=== PATIENT | female | born 1985 | race Caucasian/White ===

== ENCOUNTER 2016-06-26 13:48 | Emergency (ER) ==
[2016-06-26 13:58] VITALS: BP 123/78; TEMP 98.9; BMI 27.6
[2016-06-26 14:26] LABS: BASOPHILS % (AUTO) 0.5 % (0.0-3.0); EOSINOPHILS # (AUTO) 0.1 K/ul (0.0-0.7); EOSINOPHILS % (AUTO) 1.7 % (0.0-7.0); HEMATOCRIT 34.5 % (37.0-47.0); HEMOGLOBIN 11.7 g/dl (12.0-16.0); IMMATURE GRANULOCYTE % (AUTO) 0.4 % (0.0-5.0); LYMPHOCYTES # (AUTO) 2.3 K/uL (0.60-3.4); LYMPHOCYTES % (AUTO) 28.6 (10.0-50.0); MEAN CORPUSCULAR HEMOGLOBIN 28.5 pg (27.0-31.0); MEAN CORPUSCULAR HGB CONC 33.9 (31.8-35.4); MEAN CORPUSCULAR VOLUME 83.9 fl (81.0-99.0); MONOCYTES # (AUTO) 0.7 K/uL (0.4-2.0); MONOCYTES % (AUTO) 8.9 (0-10); NEUTROPHILS # (AUTO) 4.8 K/ul (2.0-6.9); NEUTROPHILS % (AUTO) 59.9; PLATELET COUNT 420 10^3/uL (140-440); RED BLOOD COUNT 4.11 10^6/ul (4.20-5.40); WHITE BLOOD COUNT 8.07 K/ul (4.6-10.2)
[2016-06-26 14:45] LABS: ALBUMIN/GLOBULIN RATIO 1.11; ANION GAP 18.5; BILIRUBIN,TOTAL 0.67 mg/dL (0.00-1.20); BUN/CREATININE RATIO 7.81; CALCIUM 9.2 mg/dL (8.2-10.2); CREATININE 0.64 mg/dL (0.60-1.30); TOTAL PROTEIN 7.6 g/dL (6.4-8.2)
[2016-06-26 14:47] LABS: POTASSIUM 2.5 mmol/L (3.5-5.10)
[2016-06-26] MEDS ORDERED: POTASSIUM CHLORIDE PREMIX RUN 10 MEQ in PREMIX 100 ML WATER 1 BAG IV STA (15:07)
[2016-06-26] MEDS ORDERED: POTASSIUM CHLORIDE PREMIX RUN 100 ML IV ONE (15:41)
--- NOTE | 2016-06-26 16:43 | ED.PDOC ---
General ED Provider: Dr. WINSTON SANCHEZ Chief Complaint: Non-specific Complaint Stated Complaint: HAND CRAMPING Time Seen by Physician: 13:50 (BOTH HANDS CRAMP PT STATED HER POTASSIUM LEVE CHRONICLY RUNS IN 2.5 RANGE) Mode of Arrival: Walk-In Information Source: Patient Exam Limitations: No limitations Primary Care Provider: LISSY WALDROP Nursing and Triage Documentation Reviewed and Agree: Yes (NO INJURY SEEN WITH CAKE WRAPPER AT ALL TIMES ) Miscellaneous Complaint Exam - Complex/Multi-System Complaint/Exam Onset/Duration: 1 DAY Symptoms Are: Still present Episodes Lasting: Hours Initial Severity: Mild Current Severity: Mild Location of Pain: HANDS Pain Radiates to: NO Character: CRAMP Aggravating: HYPOKALEMIA Associated Signs and Symptoms: Denies: Decreased responsiveness, Confusion, Agitation, Dizziness, Weakness, Syncope, Headache, Short of air, Cough, Wheezing , Hemoptysis, Chest pain, Palpitations, Edema, Nausea, Vomiting, Diarrhea, Abdominal pain, Back pain, Dysuria, Hematemesis, Melena, Decreased oral intake, Fever, Diaphoresis, Immunocompromised, Anticoagulation Therapy, Recent medication changes, Indwelling medical anthropologist, Prior MRSA, Prior VRE, Recent trauma, Remote trauma Recent Echo/LV Function: No Respiratory Distress: None JVD Present: No Tachypnea Present: No Stridor Present: No Glascow Coma Scale (see protocol): 15 Meningeal Signs Positive: Yes Focal Weakness: Present: None Focal Sensory Loss: Present: None Gait: Normal Gag Reflex Present: Yes Review of Systems - Review Of Systems Constitutional: Reports: No symptoms Eyes: Reports: No symptoms Ears, Nose, Mouth, Throat: Reports: No symptoms Respiratory: Reports: No symptoms Cardiac: Reports: No symptoms GI: Reports: No symptoms : Reports: No symptoms Musculoskeletal: Reports: Other (HAND PAIN) Skin: Reports: No symptoms Neurological: Reports: No symptoms Endocrine: Reports: No symptoms Hematologic/Lymphatic: Reports: No symptoms All Other Systems: Reviewed and Negative Past Medical History - Past Medical History Endocrine: Reports: None Cardiovascular: Reports: None Respiratory: Reports: None Hematological: Reports: None Gastrointestinal: Reports: None Genitourinary: Reports: None Neuro/Psych: Reports: None Musculoskeletal: Reports: None Cancer: Reports: None Last Menstrual Period: apr 2016 Other Pertinent Past Medical History: GITLEMANS - Surgical History General Surgical History: Reports: Appendectomy, Cholecystectomy, Other (GALL BLADDER,APPENDIX, X 1) - Family History Family History: Reports: None - Social History Smoking Status: Never smoker Hx Substance Use: No Alcohol Screening: None Physical Exam - Physical Exam Appearance: Well-appearing, No pain distress, Well-nourished Eyes: DIONNE, EOMI, Conjunctiva clear ENT: Ears normal, Nose normal, Oropharynx normal Respiratory: Airway patent, Breath sounds clear, Breath sounds equal, Respirations nonlabored Cardiovascular: RRR, Pulses normal, No rub, No murmur GI/: Soft, Nontender, No masses, Bowel sounds normal, No Organomegaly Musculoskeletal: Normal strength, ROM intact, No edema, No calf tenderness Skin: Warm, Dry, Normal color Neurological: Sensation intact, Motor intact, Reflexes intact, Cranial nerves intact, Alert, Oriented Psychiatric: Affect appropriate, Mood appropriate Critical Care Note - Critical Care Note Total Time (mins): 0 Course - Course Hematology/Chemistry: 06/26/16 14:20 06/26/16 14:20 Orders, Labs, Meds: Lab Review 06/26/16 06/26/16 14:14 14:20 WBC 8.07 RBC 4.11 L Hgb 11.7 L Hct 34.5 L MCV 83.9 MCH 28.5 MCHC 33.9 RDW Coeff of Marcos 13.8 Plt Count 420 Immature Gran % (Auto) 0.4 Neut % (Auto) 59.9 Lymph % (Auto) 28.6 [place] % (Auto) 8.9 Eos % (Auto) 1.7 Baso % (Auto) 0.5 Immature Gran # (Auto) 0.0 Neut # 4.8 Lymph # 2.3 [place] # 0.7 Eos # 0.1 Baso # 0.0 Sodium 140 Potassium 2.5 L* Chloride 96 L Carbon Dioxide 28 Anion Gap 18.5 BUN 5 L Creatinine 0.64 Estimated GFR (MDRD) 110.00 BUN/Creatinine Ratio 7.81 Glucose 89 Calcium 9.2 Magnesium 1.6 L Total Bilirubin 0.67 AST 39 H ALT 41 Alkaline Phosphatase 52 Total Protein 7.6 Albumin 4.0 Globulin 3.6 Albumin/Globulin Ratio 1.11 Orders Category Date Time Status EKG-(ED ONLY) Stat CARDIO 06/26/16 15:05 Completed ED IV/MEDIPORT/POWERPORT .ONCE EMERGENCY 06/26/16 15:10 Active CBC W/ AUTO DIFF Stat LAB 06/26/16 14:20 Completed COMPREHENSIVE METABOLIC PANEL Stat LAB 06/26/16 14:20 Completed MAGNESIUM Stat LAB 06/26/16 14:14 Completed 0.9 % Sodium Chloride [Saline Flush] MEDS 06/26/16 15:10 Ordered 1 syr IVF PRN PRN Potassium Chloride [Potassium Chloride Premix Run] 10 MEDS 06/26/16 15:07 Discontinued meq Premix 100 ml Water 1 bag IV ONCE Potassium Chloride [Potassium Chloride Premix Run] 100 MEDS 06/26/16 15:41 Discontinued ml IV .STK-MED Medications Generic Name Dose Route Start Last Admin Trade Name Freq PRN Reason Stop Dose Admin Sodium Chloride 1 syr 06/26/16 15:10 06/26/16 16:10 Saline Flush IVF 1 syr PRN PRN Administration To flush IV Discontinued Medications Generic Name Dose Route Start Last Admin Trade Name Freq PRN Reason Stop Dose Admin Potassium Chloride 10 meq/ 100 mls @ 100 mls/hr 06/26/16 15:07 06/26/16 16:09 Sterile Water IV 06/26/16 16:06 100 mls/hr ONCE STA Administration Vital Signs: Temp Pulse Resp BP Pulse Ox 06/26/16 13:49 98.9 F 104 H 20 123/78 98 Departure - Departure Time of Disposition: 16:43 Disposition: HOME SELF-CARE Discharge Problem: Hypokalemia Instructions: Hypokalemia (ED) Condition: Good Pt referred to PMD for follow-up: No Additional Instructions: Please call your Family Physician as soon as possible to schedule a follow-up appointment. Allergies/Adverse Reactions: Allergies No Known Allergies Allergy (Verified 06/26/16 13:57) Home Medications: Ambulatory Orders 1 [No Reported Medications] 06/26/16 Disposition Discussed With: Patient, Family
== END 2016-06-26 17:37 | disposition home or self-care (01) ==
LOC: ED 13:48
DX: E87.6 Hypokalemia (principal); E26.81 Bartter's syndrome
CPT/HCPCS: 36415; 80053; 83735; 85025; 93005; 93010; 96365; 96366; 99283

== ENCOUNTER 2016-07-16 18:13 | Emergency (ER) ==
[2016-07-16 18:23] VITALS: BP 138/88; TEMP 97.6; BMI 27.4
[2016-07-16] MEDS ORDERED: SODIUM CHLORIDE 1,000 ML IV STA (18:39)
[2016-07-16 18:50] LABS: BASOPHILS # (AUTO) 0.1 K/uL (0-0.2); BASOPHILS % (AUTO) 0.4 % (0.0-3.0); EOSINOPHILS # (AUTO) 0.1 K/ul (0.0-0.7); EOSINOPHILS % (AUTO) 0.7 % (0.0-7.0); HEMATOCRIT 35.2 % (37.0-47.0); HEMOGLOBIN 11.9 g/dl (12.0-16.0); IMMATURE GRANULOCYTE % (AUTO) 0.6 % (0.0-5.0); LYMPHOCYTES # (AUTO) 1.3 K/uL (0.60-3.4); LYMPHOCYTES % (AUTO) 10.3 (10.0-50.0); MEAN CORPUSCULAR HEMOGLOBIN 27.5 pg (27.0-31.0); MEAN CORPUSCULAR HGB CONC 33.8 (31.8-35.4); MEAN CORPUSCULAR VOLUME 81.5 fl (81.0-99.0); MONOCYTES # (AUTO) 0.8 K/uL (0.4-2.0); MONOCYTES % (AUTO) 6.2 (0-10); NEUTROPHILS % (AUTO) 81.8; PLATELET COUNT 387 10^3/uL (140-440); RED BLOOD COUNT 4.32 10^6/ul (4.20-5.40); WHITE BLOOD COUNT 12.15 K/ul (4.6-10.2)
[2016-07-16 18:59] LABS: BILIRUBIN,URINE Negative (NEGATIVE); KETONES,URINE 3+ (NEGATIVE); LEUKOCYTE ESTERASE ,URINE Trace (NEGATIVE); NITRITE,URINE Negative (NEGATIVE); PROTEIN,URINE 2+ (NEGATIVE); URINE, BLOOD Trace-lysed (NEGATIVE)
[2016-07-16 19:01] LABS: ADD URINE MICROSCOPIC YES
[2016-07-16 19:03] LABS: BACTERIA,URINE 1+ (NOT PRESENT)
[2016-07-16 19:09] LABS: SERUM PREGNANCY INTERNAL QC INTERNAL QC VALID
[2016-07-16 19:49] LABS: ALBUMIN 4.1 g/dL (3.4-5.0); ALBUMIN/GLOBULIN RATIO 0.98; ANION GAP 21.2; BILIRUBIN,TOTAL 0.37 mg/dL (0.00-1.20); BUN/CREATININE RATIO 6.75; CALCIUM 10.1 mg/dL (8.2-10.2); CREATININE 0.74 mg/dL (0.60-1.30); TOTAL PROTEIN 8.3 g/dL (6.4-8.2)
[2016-07-16 19:50] LABS: POTASSIUM 2.2 mmol/L (3.5-5.10)
[2016-07-16] MEDS ORDERED: POTASSIUM CHLORIDE PREMIX RUN 40 MEQ in PREMIX 100 ML WATER 2 BAG IV STA (19:53)
--- NOTE | 2016-07-16 19:57 | ED.PDOC ---
General ED Provider: Dr. LISSY WALDROP-ER Chief Complaint: Stated Complaint: im hurting and throwing up--im constipated Time Seen by Physician: 19:56 Mode of Arrival: Walk-In Information Source: Patient Exam Limitations: No limitations Primary Care Provider: LISSY WALDROP Nursing and Triage Documentation Reviewed and Agree: Yes GI Complaint Exam - Vomiting/Diarrhea Complaint/Exam Onset/Duration: a few hours Symptoms Are: Still present Episodes of Vomiting over last 24 Hours: 5 Initial Severity: Mild Current Severity: Mild Character of Vomiting: Reports: Non-bilious Aggravating: Reports: None Alleviating: Reports: None Associated Signs and Symptoms: Reports: Abdominal pain, Cramping Recent Positive Test: Yes Use of Oral Contraceptives: No Use of Depoprovera: No Compliant With Contraceptive Use: No Non-GI Risk Factors: Reports: None Surgical Obstruction Risk Factors: Reports: None Related Surgical History: Reports: None Abdominal Findings: Present: None Kussmaul Respirations Present: No Review of Systems - Review Of Systems Constitutional: Reports: No symptoms Eyes: Reports: No symptoms Ears, Nose, Mouth, Throat: Reports: No symptoms Respiratory: Reports: No symptoms Cardiac: Reports: No symptoms GI: Reports: Abdominal pain, Constipated, Nausea, Vomiting : Reports: No symptoms Musculoskeletal: Reports: No symptoms Skin: Reports: No symptoms Neurological: Reports: No symptoms Endocrine: Reports: No symptoms Hematologic/Lymphatic: Reports: No symptoms All Other Systems: Reviewed and Negative Past Medical History - Past Medical History Endocrine: Reports: None Cardiovascular: Reports: None Respiratory: Reports: None Hematological: Reports: None Gastrointestinal: Reports: None Genitourinary: Reports: None Neuro/Psych: Reports: None Musculoskeletal: Reports: None Cancer: Reports: None Last Menstrual Period: May 11, 2016 Other Pertinent Past Medical History: GITLEMANS - Surgical History General Surgical History: Reports: Appendectomy, Cholecystectomy, Other (GALL BLADDER,APPENDIX, X 1) - Family History Family History: Reports: None - Social History Smoking Status: Never smoker Hx Substance Use: No Alcohol Screening: None Lives: With family - Immunizations Tetanus Shot up to Date: Yes Physical Exam - Physical Exam Appearance: Ill-appearing Eyes: DIONNE, EOMI, Conjunctiva clear ENT: Ears normal, Nose normal, Oropharynx normal Neck: Supple Respiratory: Airway patent, Breath sounds clear, Breath sounds equal, Respirations nonlabored Cardiovascular: RRR, Pulses normal, No rub, No murmur GI/: Soft, Nontender, No masses, Bowel sounds normal, No Organomegaly Musculoskeletal: Normal strength, ROM intact, No edema, No calf tenderness Skin: Warm, Dry, Normal color Neurological: Sensation intact, Motor intact, Reflexes intact, Cranial nerves intact, Alert, Oriented Psychiatric: Affect appropriate Re-Evaluation - Re-Evaluation Time of Re-Evaluation: 21:01 Status: Improved (had bm--no further pain) Vital Signs Stable: Yes Pain Level: 0 Appearance: NAD Lungs: Clear Skin: Warm and Dry Neuro: Alert and Oriented X3 CV: RRR Critical Care Note - Critical Care Note Total Time (mins): 0 Course - Course Hematology/Chemistry: 07/16/16 18:45 07/16/16 18:45 Orders, Labs, Meds: Lab Review 07/16/16 07/16/16 07/16/16 18:10 18:45 19:00 WBC 12.15 H RBC 4.32 Hgb 11.9 L Hct 35.2 L MCV 81.5 MCH 27.5 MCHC 33.8 RDW Coeff of Marcos 13.3 Plt Count 387 Immature Gran % (Auto) 0.6 Neut % (Auto) 81.8 Lymph % (Auto) 10.3 [place] % (Auto) 6.2 Eos % (Auto) 0.7 Baso % (Auto) 0.4 Immature Gran # (Auto) 0.1 Neut # 10.0 H Lymph # 1.3 [place] # 0.8 Eos # 0.1 Baso # 0.1 Sodium 136 Potassium 2.2 L* Chloride 94 L Carbon Dioxide 23 Anion Gap 21.2 BUN 5 L Creatinine 0.74 Estimated GFR (MDRD) 92.00 BUN/Creatinine Ratio 6.75 Glucose 111 H Calcium 10.1 Magnesium 1.8 Total Bilirubin 0.37 AST 32 ALT 23 Alkaline Phosphatase 62 Total Protein 8.3 H Albumin 4.1 Globulin 4.2 Albumin/Globulin Ratio 0.98 Amylase 63 Lipase 21 HCG, Quant 613227.79 Serum , Qual Positive Urine Color Yellow Urine Clarity Slightly Urine pH 6.0 Ur Specific [place] 1.025 Urine Protein 2+ Urine Glucose (UA) Negative Urine Ketones 3+ Urine Blood Trace-lysed Urine Nitrite Negative Urine Bilirubin Negative Urine Urobilinogen 0.2 Ur Leukocyte Esterase Trace Urine Microscopic RBC 5-10 Urine Microscopic WBC 2-5 Ur Squamous Epith Cells 10-20 Amorphous Sediment 1+ Urine Bacteria 1+ Orders Category Date Time Status IV [ED IV/MEDIPORT/POWERPORT] .ONCE EMERGENCY 07/16/16 18:39 Active AMYLASE Stat LAB 07/16/16 18:45 Completed CBC W/ AUTO DIFF Stat LAB 07/16/16 18:45 Completed COMPREHENSIVE METABOLIC PANEL Stat LAB 07/16/16 18:45 Completed HCG,QUANTITATIVE Stat LAB 07/16/16 18:45 Completed LIPASE Stat LAB 07/16/16 18:45 Completed MAGNESIUM Stat LAB 07/16/16 19:00 Completed SERUM Stat LAB 07/16/16 18:45 Completed URINALYSIS C & S IF INDICATED Stat LAB 07/16/16 18:10 Completed URINE CULTURE Stat LAB 07/16/16 19:02 Received 0.9 % Sodium Chloride [Saline Flush] MEDS 07/16/16 18:39 Ordered 1 syr IVF PRN PRN Potassium Chloride [Potassium Chloride Premix Run] 200 MEDS 07/16/16 19:57 Discontinued ml IV .STK-MED Potassium Chloride [Potassium Chloride Premix Run] 40 MEDS 07/16/16 19:53 Active meq Premix 100 ml Water 2 bag IV ONCE Sodium Chloride 0.9% [Sodium Chloride] 1,000 ml MEDS 07/16/16 18:39 Discontinued IV BOLUS Medications Generic Name Dose Route Start Last Admin Trade Name Freq PRN Reason Stop Dose Admin Potassium Chloride 40 meq/ 200 mls @ 50 mls/hr 07/16/16 19:53 07/16/16 20:14 Sterile Water IV 07/16/16 23:52 Not Given ONCE STA Sodium Chloride 1 syr 07/16/16 18:39 Saline Flush IVF PRN PRN To flush IV Discontinued Medications Generic Name Dose Route Start Last Admin Trade Name Freq PRN Reason Stop Dose Admin Sodium Chloride 1,000 mls @ 1,000 mls/hr 07/16/16 18:39 07/16/16 19:00 Sodium Chloride IV 07/16/16 19:38 1,000 mls/hr BOLUS STA Administration after she had bm--she denies any further abdominal pain--no pelvic pain or bleeding) Vital Signs: Temp Pulse Resp BP Pulse Ox 07/16/16 18:15 97.6 F 85 18 138/88 98 Departure - Departure Time of Disposition: 21:55 Disposition: HOME SELF-CARE Discharge Problem: Hypokalemia Constipation Qualifiers: Constipation type: unspecified constipation type Qualifier Code: (K59.00) Constipation, unspecified Instructions: High Fiber Diet (ED) Condition: Good Pt referred to PMD for follow-up: Yes Additional Instructions: keep appt with ob this week--be sure and get lytes checked this week Allergies/Adverse Reactions: Allergies No Known Allergies Allergy (Verified 06/26/16 13:57) Home Medications: Ambulatory Orders Escitalopram Oxalate [Lexapro] 10 mg PO DAILY 07/16/16 Pnv95/Ferrous Fumarate/FA [ Tablet] 1 each PO DAILY 07/16/16 Disposition Discussed With: Patient, Family
[2016-07-16] MEDS: POTASSIUM CHLORIDE PREMIX RUN 200 ML IV ONE ×2 (20:14→21:42)
== END 2016-07-16 23:57 | disposition home or self-care (01) ==
LOC: ED 18:13
DX: E87.6 Hypokalemia (principal); K59.00 Constipation, unspecified; E26.81 Bartter's syndrome; Z33.1 Pregnant state, incidental; R11.2 Nausea with vomiting, unspecified; R10.9 Unspecified abdominal pain
CPT/HCPCS: 36415; 80053; 81001; 82150; 83690; 83735; 84702; 84703; 85025; 87086; 96361; 96365; 96366; 99284

== ENCOUNTER 2018-09-29 14:18 | Observation (INO) ==
[2018-09-29] MEDS ORDERED: TYLENOL PO STA (15:23)
[2018-09-29] MEDS ORDERED: ZOFRAN 4 MG/2 ML IVP STA (15:30)
[2018-09-29] MEDS ORDERED: K-DUR PO STA (16:02)
[2018-09-29] MEDS ORDERED: POTASSIUM CHLORIDE PREMIX RUN 10 MEQ in PREMIX 100 ML WATER 1 BAG IV STA ×9 (16:03→18:56)
[2018-09-29] MEDS ORDERED: ZOSYN 3.375 GM 3.375 GM in SODIUM CHLORIDE 50 ML IV STA (16:03)
[2018-09-29] MEDS ORDERED: POTASSIUM CHLORIDE PREMIX RUN 100 ML IV ONE ×4 (16:06→23:51)
--- NOTE | 2018-09-29 16:08 | ED.PDOC ---
General ED Provider: Dr. WINSTON SANCHEZ Chief Complaint: Non-specific Complaint Stated Complaint: Leg cramps . pt reports that she was due to get K /Mag as out pt out pt but, she had skipped the out pt mag/k replacement 1 day ago.now has cramos which she notes when her. Time Seen by Physician: 14:20 Mode of Arrival: Walk-In Information Source: Patient Exam Limitations: No limitations Primary Care Provider: LISSY WALDROP Nursing and Triage Documentation Reviewed and Agree: Yes Does patient meet sepsis criteria?: No System Inflammatory Response Syndrome: Not Applicable Sepsis Protocol: For patient's 13 years and over: Temp is 96.8 and below OR 101 and greater Pulse >90 BPM Resp >20/minute Acutely Altered Mental Status Are patient's symptoms suggestive of a new infection, such as: -Pneumonia -Skin, Soft Tissue -Endocarditis -UTI -Bone, Joint Infection -Implantable Device -Acute Abdominal Infection -Wound Infection -Meningitis -Blood Stream Catheter Infection -Unknown Miscellaneous Complaint Exam - Complex/Multi-System Complaint/Exam Symptoms Are: Still present Initial Severity: Mild Current Severity: Mild Location of Pain: upper/lower leg Associated Signs and Symptoms: Denies: Decreased responsiveness, Confusion, Agitation, Dizziness, Weakness, Syncope, Headache, Short of air, Cough, Wheezing , Hemoptysis, Chest pain, Palpitations, Edema, Nausea, Vomiting, Diarrhea, Abdominal pain, Back pain, Dysuria, Hematemesis, Melena, Decreased oral intake, Fever, Diaphoresis, Immunocompromised, Anticoagulation Therapy, Recent medication changes, Indwelling medical billing coordinator, Prior MRSA, Prior VRE, Recent trauma, Remote trauma Recent Echo/LV Function: No Respiratory Distress: None JVD Present: No Tachypnea Present: No Stridor Present: No Abdominal Findings: Present: Normal findings Glascow Coma Scale (see protocol): 15 Meningeal Signs Positive: No Focal Weakness: Present: None Focal Sensory Loss: Present: None Gait: Unable Gag Reflex Present: Yes Babinski Sign: Negative Right, Negative Left Skin Findings: Present: Normal findings Joint Swelling Present: No Differential Diagnosis: Metabolic Abnormality, Sepsis Quality Indicators for Cardiac Chest Pain: EKG in 10min. Quality Indicator For Non-Traumatic Chest Pain/Syncope: EKG Performed Review of Systems - Review Of Systems Constitutional: Reports: No symptoms Eyes: Reports: No symptoms Ears, Nose, Mouth, Throat: Reports: No symptoms Respiratory: Reports: No symptoms Cardiac: Reports: No symptoms GI: Reports: No symptoms : Reports: No symptoms Musculoskeletal: Reports: Other (leg pain) Skin: Reports: No symptoms Neurological: Reports: No symptoms Endocrine: Reports: No symptoms Hematologic/Lymphatic: Reports: No symptoms All Other Systems: Reviewed and Negative Past Medical History - Past Medical History Previously Healthy: No Endocrine: Reports: None Cardiovascular: Reports: None Respiratory: Reports: None Hematological: Reports: None Gastrointestinal: Reports: None Genitourinary: Reports: None Neuro/Psych: Reports: None Musculoskeletal: Reports: None Cancer: Reports: None Last Menstrual Period: 3 WEEKS AGO Other Pertinent Past Medical History: GITLEMANS - Surgical History General Surgical History: Reports: Appendectomy, Cholecystectomy, Other (GALL BLADDER,APPENDIX, X 1) - Family History Family History: Reports: None - Social History Smoking Status: Never smoker Hx Substance Use: No Alcohol Screening: None - Immunizations Tetanus Shot up to Date: No Physical Exam - Physical Exam Appearance: Well-appearing, No pain distress, Well-nourished Eyes: DIONNE, EOMI, Conjunctiva clear ENT: Ears normal, Nose normal, Oropharynx normal Respiratory: Airway patent, Breath sounds clear, Breath sounds equal, Respirations nonlabored Cardiovascular: RRR, Pulses normal, No rub, No murmur GI/: Soft, Nontender, No masses, Bowel sounds normal, No Organomegaly Musculoskeletal: Normal strength, ROM intact, No edema, No calf tenderness Skin: Warm, Dry, Normal color Neurological: Sensation intact, Motor intact, Reflexes intact, Cranial nerves intact, Alert, Oriented Psychiatric: Affect appropriate, Mood appropriate Re-Evaluation - Re-Evaluation Time of Re-Evaluation: 15:30 Status: Unchanged, Improved Vital Signs Stable: Yes Pain Level: 2/10 Appearance: NAD Lungs: Clear Skin: Warm and Dry Neuro: Alert and Oriented X3 CV: RRR - Re-Evaluation Time of Re-Evaluation: 16:55 Status: Unchanged Vital Signs Stable: Yes Pain Level: 0 Appearance: NAD Skin: Warm and Dry Neuro: Alert and Oriented X3 CV: RRR (serum mag 1.16 . PMD PAGED) Additional Comments: pmd gave orders to the nurse these orders are out pt orders. Physician Notification - Case Discussed Physician Notified: danni Time of Notification: 16:13 (stated once mag level is known to be called he will issue further orders ) Physician Notified: pmd Time of Notification: 17:03 (mag levels reported . pmd stated he would give order to jude dean for out pt order.) Critical Care Note - Critical Care Note Total Time (mins): 0 Course - Course Hematology/Chemistry: 09/29/18 15:05 09/29/18 15:05 Orders, Labs, Meds: Lab Review 09/29/18 09/29/18 09/29/18 14:45 14:45 15:05 WBC 15.72 H RBC 4.29 Hgb 11.8 L Hct 35.2 L MCV 82.1 MCH 27.5 MCHC 33.5 RDW Coeff of Marcos 13.8 Plt Count 332 Immature Gran % (Auto) 0.5 Neut % (Auto) 85.1 Lymph % (Auto) 5.9 L [place] % (Auto) 8.1 Eos % (Auto) 0.1 Baso % (Auto) 0.3 Immature Gran # (Auto) 0.1 Neut # (Auto) 13.4 H Lymph # (Auto) 0.9 [place] # (Auto) 1.3 Eos # (Auto) 0.0 Baso # (Auto) 0.0 PT INR APTT Sodium Potassium Chloride Carbon Dioxide Anion Gap BUN Creatinine Estimated GFR (MDRD) BUN/Creatinine Ratio Glucose Lactic Acid Calcium Magnesium Total Bilirubin AST ALT Alkaline Phosphatase Total Protein Albumin Globulin Albumin/Globulin Ratio Procalcitonin TSH Free T4 Urine Color Yellow Urine Clarity Slightly Urine pH 7.0 Ur Specific [place] 1.015 Urine Protein 1+ Urine Glucose (UA) Negative Urine Ketones Negative Urine Blood Trace-intact Urine Nitrite Negative Urine Bilirubin Negative Urine Urobilinogen 0.2 Ur Leukocyte Esterase 1+ Urine Microscopic RBC 2-5 Urine Microscopic WBC 5-10 Ur Squamous Epith Cells 5-10 Urine Bacteria 2+ Influ A Molecular Assay Negative by naat Influ B Molecular Assay Negative by naat 09/29/18 09/29/18 09/29/18 15:05 15:05 15:05 WBC RBC Hgb Hct MCV MCH MCHC RDW Coeff of Marcos Plt Count Immature Gran % (Auto) Neut % (Auto) Lymph % (Auto) [place] % (Auto) Eos % (Auto) Baso % (Auto) Immature Gran # (Auto) Neut # (Auto) Lymph # (Auto) [place] # (Auto) Eos # (Auto) Baso # (Auto) PT INR APTT Sodium 134.8 Potassium 1.86 L* Chloride 88.9 L Carbon Dioxide 31.6 H Anion Gap 16.16 BUN 2.5 L Creatinine 0.51 L Estimated GFR (MDRD) 140.00 BUN/Creatinine Ratio 4.90 Glucose 118.2 H Lactic Acid Calcium 9.21 Magnesium Total Bilirubin 0.70 AST 39.4 H ALT 40.6 H Alkaline Phosphatase 58.4 Total Protein 8.61 H Albumin 5.10 H Globulin 3.51 Albumin/Globulin Ratio 1.45 Procalcitonin 0.10 TSH 1.330 Free T4 1.00 Urine Color Urine Clarity Urine pH Ur Specific [place] Urine Protein Urine Glucose (UA) Urine Ketones Urine Blood Urine Nitrite Urine Bilirubin Urine Urobilinogen Ur Leukocyte Esterase Urine Microscopic RBC Urine Microscopic WBC Ur Squamous Epith Cells Urine Bacteria Influ A Molecular Assay Influ B Molecular Assay 09/29/18 09/29/18 09/29/18 15:05 15:05 15:05 WBC RBC Hgb Hct MCV MCH MCHC RDW Coeff of Marcos Plt Count Immature Gran % (Auto) Neut % (Auto) Lymph % (Auto) [place] % (Auto) Eos % (Auto) Baso % (Auto) Immature Gran # (Auto) Neut # (Auto) Lymph # (Auto) [place] # (Auto) Eos # (Auto) Baso # (Auto) PT 11.1 H INR 1.11 APTT 27.6 Sodium Potassium Chloride Carbon Dioxide Anion Gap BUN Creatinine Estimated GFR (MDRD) BUN/Creatinine Ratio Glucose Lactic Acid 2.48 H Calcium Magnesium 1.16 L Total Bilirubin AST ALT Alkaline Phosphatase Total Protein Albumin Globulin Albumin/Globulin Ratio Procalcitonin TSH Free T4 Urine Color Urine Clarity Urine pH Ur Specific [place] Urine Protein Urine Glucose (UA) Urine Ketones Urine Blood Urine Nitrite Urine Bilirubin Urine Urobilinogen Ur Leukocyte Esterase Urine Microscopic RBC Urine Microscopic WBC Ur Squamous Epith Cells Urine Bacteria Influ A Molecular Assay Influ B Molecular Assay Orders Category Date Time Status EKG-(ED ONLY) Stat CARDIO 09/29/18 14:41 Completed EKG-(ED ONLY) Stat CARDIO 09/29/18 16:04 Ordered BLOOD CULTURE Stat LAB 09/29/18 15:35 Received CBC W/ AUTO DIFF Stat LAB 09/29/18 15:05 Completed COMPREHENSIVE METABOLIC PANEL Stat LAB 09/29/18 15:05 Completed FLU A/B MOLECULAR Stat LAB 09/29/18 14:45 Completed FREE T4 (FREE THYROXINE) Stat LAB 09/29/18 15:05 Completed LACTIC ACID Stat LAB 09/29/18 15:05 Completed MAGNESIUM Stat LAB 09/29/18 15:05 Completed MOLECULAR GROUP A STREP Stat LAB 09/29/18 14:45 Completed PARTIAL THROMBOPLASTIN TIME Stat LAB 09/29/18 15:05 Completed PROCALCITONIN Stat LAB 09/29/18 15:05 Completed PT WITH INR Stat LAB 09/29/18 15:05 Completed THYROID STIMULATING HORMONE Stat LAB 09/29/18 15:05 Completed UA [URINALYSIS C & S IF INDICATED] Stat LAB 09/29/18 14:45 Completed URINE CULTURE Stat LAB 09/29/18 14:45 Received Acetaminophen [Tylenol] MEDS 09/29/18 15:23 Discontinued 650 mg PO ONCE STA Ondansetron HCl/Pf [Zofran 4 mg/2 ml] MEDS 09/29/18 15:30 Discontinued 4 mg IVP ONCE STA Piperacillin Sodium/Tazobactam [Zosyn 3.375 gm] 3.375 MEDS 09/29/18 16:03 Active gm 0.9 % Sodium Chloride [Sodium Chloride] 50 ml IV ONCE Potassium Chloride [K-Dur] MEDS 09/29/18 16:02 Discontinued 40 meq PO ONCE STA Potassium Chloride [Potassium Chloride Premix Run] 10 MEDS 09/29/18 16:03 Active meq Premix 100 ml Water 1 bag IV ONCE Potassium Chloride [Potassium Chloride Premix Run] 100 MEDS 09/29/18 16:06 Discontinued ml IV .STK-MED Medications Discontinued Medications Generic Name Dose Route Start Last Admin Trade Name Freq PRN Reason Stop Dose Admin Acetaminophen 650 mg 09/29/18 15:23 09/29/18 15:46 Tylenol PO 09/29/18 15:24 650 mg ONCE STA Administration Potassium Chloride 10 meq/ 100 mls @ 100 mls/hr 09/29/18 16:03 09/29/18 16:40 Sterile Water IV 09/29/18 17:02 100 mls/hr ONCE STA Administration Piperacillin Sod/Tazobactam 50 mls @ 50 mls/hr 09/29/18 16:03 09/29/18 16:21 Sod 3.375 gm/ Sodium Chloride IV 09/29/18 17:02 50 mls/hr ONCE STA Administration Ondansetron HCl 4 mg 09/29/18 15:30 09/29/18 15:46 Zofran 4 Mg/2 Ml IVP 09/29/18 15:31 4 mg ONCE STA Administration Potassium Chloride 40 meq 09/29/18 16:02 09/29/18 16:10 K-Dur PO 09/29/18 16:03 40 meq ONCE STA Administration Vital Signs: Temp Pulse Resp BP Pulse Ox 09/29/18 16:45 102.4 F H 09/29/18 14:19 103 F H 113 H 20 133/85 99 Departure - Departure Time of Disposition: 17:04 (pmd d/c pt to the out pt gave orders to nursre .) Disposition: HOME SELF-CARE Discharge Problem: Hypokalemia, Hypomagnesemia Instructions: Hypokalemia (ED), Hypomagnesemia (ED) Condition: Good Pt referred to PMD for follow-up: Yes IPMP verified?: No Allergies/Adverse Reactions: Allergies No Known Allergies Allergy (Verified 09/29/18 14:57) Home Medications: Ambulatory Orders Venlafaxine HCl [Effexor Xr] 75 mg PO DAILY 09/29/18 Disposition Discussed With: Patient, Family
--- NOTE | 2018-09-29 17:52 | CT ---
EXAM: Noncontrast CT of the abdomen and pelvis HISTORY: Fever, evaluate for pyelonephritis. COMPARISON: None available TECHNIQUE: Axial noncontrast CT of the abdomen and pelvis with sagittal and coronal reformats. FINDINGS: A 0.7 cm right breast nodule is identified. Noncontrast technique limits evaluation of abdominal viscera. There is mild probable fatty infiltrat ion of the liver near the falciform ligament. The gallbladder has been removed. The unenhanced sple en, adrenals, left kidney and pancreas appear unremarkable. There is a punctate right renal nonobstr ucting calculus. No proximal to mid ureteral calculi identified. The distal ureters are obscured, b ut no calculi are seen along their expected course to suggest distal ureteral calculi. Hyperdense material is seen in the stomach. No abnormal bowel dilation is identified. The appendix has been removed. There is a 2.7 cm left adnexal cyst. No free air or free fluid is seen. A tiny fat containing umbil ical hernia is noted. There is moderate L5-S1 degenerative disc disease. IMPRESSION: No acute intra-abdominal findings. Punctate right renal nonobstructing calculus. Status post cholecystectomy and appendectomy. 3.7 cm left adnexal cyst. Evaluation for pyelonephritis is limited due to noncontrast technique.
--- NOTE | 2018-09-29 18:32 | DI ---
EXAM: Two-view chest HISTORY: Fever TECHNIQUE: Frontal and lateral views of the chest were obtained. FINDINGS: The heart is normal size. Lungs are clear. The pulmonary vasculature appears normal. Th e costophrenic angles are sharp. The osseous structures and mediastinal contours are normal. IMPRESSION: No active cardiopulmonary disease.
[2018-09-29] MEDS ORDERED: TYLENOL PO PRN (18:47)
[2018-09-29] MEDS ORDERED: MAGNESIUM SULFATE 2 GM in PREMIX 100 ML D5W 2 BAG IV STA ×2 (18:51→18:53)
[2018-09-29] MEDS ORDERED: DILAUDID 1 MG/ML SYRINGE IVP SCH (19:00)
[2018-09-29] MEDS ORDERED: PHENERGAN 25 MG/ML VIAL 25 MG in SODIUM CHLORIDE 50 ML IV PRN (19:23)
[2018-09-29] MEDS ORDERED: PHENERGAN 25 MG/ML VIAL ONE (19:25)
[2018-09-29] MEDS: DILAUDID 1 MG/ML SYRINGE IVP PRN (19:35)
[2018-09-29 20:05] VITALS: BMI 28.2
[2018-09-29] MEDS ORDERED: DILAUDID 0.5 MG/0.5 ML SYRINGE IVP STA (20:38)
[2018-09-29] MEDS ORDERED: DILAUDID 1 MG/ML SYRINGE IVP STA (20:47)
[2018-09-30] MEDS: ZOFRAN 4 MG/2 ML IVP SCH ×4 (00:07→07:43)
[2018-09-30] MEDS ORDERED: POTASSIUM CHLORIDE PREMIX RUN 100 ML IV ONE (01:57)
[2018-09-30] MEDS ORDERED: MAGNESIUM SULFATE 1 GM/2 ML VIAL ONE (02:07)
[2018-09-30] MEDS: ZOSYN 3.375 GM 3.375 GM in SODIUM CHLORIDE 50 ML IV SCH ×5 (02:32→20:55)
[2018-09-30] MEDS ORDERED: MAGNESIUM SULFATE 200 ML IV ONE ×2 (03:36→06:32)
[2018-09-30] MEDS ORDERED: POTASSIUM CHLORIDE PREMIX RUN 10 MEQ in PREMIX 100 ML WATER 1 BAG IV STA (03:49)
[2018-09-30] MEDS ORDERED: MAGNESIUM SULFATE 2 GM in PREMIX 100 ML D5W 2 BAG IV STA ×2 (04:10→04:11)
[2018-09-30] MEDS: DILAUDID 1 MG/ML SYRINGE IVP PRN (04:19)
[2018-09-30] MEDS ORDERED: ZOFRAN 4 MG/2 ML IVP PRN (07:03)
[2018-09-30] MEDS ORDERED: POTASSIUM CHLORIDE PREMIX RUN 20 MEQ in PREMIX 100 ML WATER 1 BAG IV STA (07:48)
[2018-09-30] MEDS ORDERED: POTASSIUM CHLORIDE PREMIX RUN 20 MEQ in PREMIX 100 ML WATER 1 BAG IV ONE ×2 (09:00→11:00)
[2018-09-30] MEDS ORDERED: POTASSIUM CHLORIDE PREMIX RUN 10 MEQ in PREMIX 100 ML WATER 1 BAG IV ONE (13:00)
[2018-09-30 20:35] VITALS: TEMP 98.4
[2018-10-01] MEDS: ZOSYN 3.375 GM 3.375 GM in SODIUM CHLORIDE 50 ML IV SCH ×2 (04:56→13:27)
[2018-10-01] MEDS ORDERED: POTASSIUM CHLORIDE PREMIX RUN 20 MEQ in PREMIX 100 ML WATER 2 BAG IV ONE (07:30)
[2018-10-01] MEDS ORDERED: POTASSIUM CHLORIDE PREMIX RUN 40 MEQ in PREMIX 100 ML WATER 2 BAG IV STA (08:14)
[2018-10-01] MEDS ORDERED: POTASSIUM CHLORIDE PREMIX RUN 20 MEQ in PREMIX 100 ML WATER 1 BAG IV ONE (09:30)
[2018-10-01 10:12] VITALS: BP 112/75
--- NOTE | 2018-11-14 11:53 | SSS ---
DATE OF SERVICE: 10/01/18 DISCUSSION: This is a 33-year-old lady with a history of Gitelman's syndrome who receives outpatient magnesium and potassium at the infusion center at [facility] in [place]. However, she was unable to attend her therapy due to the holidays and presented to the Emergency Department here with leg cramping with evidence of hypokalemia with potassium 1.86. Because of her severe hypokalemia, the ER physician felt she needed to be admitted therefore she was admitted to my services for replacement of this. She was also found to have a fever of 102. She was found to have evidence of a UTI and was admitted with antibiotics. PAST MEDICAL HISTORY: MEDICATIONS: Outpatient magnesium as well as potassium. PAST MEDICAL HISTORY: She has a history of Gitelman's syndrome. PAST SURGICAL HISTORY: History of appendectomy Cholecystectomy Cesearean section ALLERGIES: NKDA SOCIAL HISTORY: Nonsmoker. No alcohol use. No illicit drug use is noted. FAMILY HISTORY: Reviewed. There is no familial tendencies. REVIEW OF SYSTEMS: Generalized weakness, muscle cramps and muscle spasms. She has had fever and chills. Denies abdominal pain, blood in the stool, urinary symptoms or seizures. PHYSICAL EXAMINATION: VITAL SIGNS: Temperature 102, pulse 113, respirations 20 and blood pressure 133/ 85. HEENT: Pupils are round. NECK: Supple. CHEST: Clear. CARDIOVASCULAR: Regular rate and rhythm. ABDOMEN: Soft, nontender. EXTREMITIES: Distal extremities without cyanosis or edema. CLINICAL COURSE: The patient was admitted to SCU. She was given IV potassium as well as magnesium with improvement in her symptoms. Her urine culture is known to be positive for E. coli. With antibiotics, her temperature did defervese and at time of discharge, she was afebrile. Her magnesium and potassium had improved. Her muscle cramping had resolved. At this point, the patient was discharged home. ASSESSMENT: 1. Gitelman's syndrome with hypokalemia and hypomagnesemia. 2. UTI. PLAN: 1. Admission to my services with IV fluids. 2. Hydration. 3. Repletion of potassium, magnesium as well as antibiotic therapy. [facility]
== END 2018-10-01 13:02 | disposition home or self-care (01) ==
LOC: ED 14:18 → SCU 18:56
PROVIDERS: ADMIT Family Medicine; ATTEND Family Medicine
DX: N39.0 Urinary tract infection, site not specified (principal); N15.8 Other specified renal tubulo-interstitial diseases; R25.2 Cramp and spasm; M79.669 Pain in unspecified lower leg; E87.6 Hypokalemia; E83.42 Hypomagnesemia; R53.1 Weakness; R50.9 Fever, unspecified
CPT/HCPCS: 36415; 80048; 80053; 81001; 83605; 83735; 84132; 84145; 84439; 84443; 85025; 85610; 85730; 87040; 87081; 87086; 87186; 87502; 87651; 93005; 93010; 96361; 96365; 96366; 96367; 96375; 96376; 99285

== ENCOUNTER 2020-01-30 15:50 | Inpatient (IN) ==
[2020-01-30] MEDS ORDERED: SODIUM CHLORIDE 1,000 ML IV STA (16:57)
[2020-01-30] MEDS ORDERED: TYLENOL PO STA (16:57)
--- NOTE | 2020-01-30 17:01 | ED.PDOC ---
General ED Provider: Dr. LISSY SCOTT Chief Complaint: Urinary Problem Stated Complaint: urgency, frequency and burning with urination. Aching, fever and chills Time Seen by Physician: 16:45 Mode of Arrival: Walk-In Information Source: Patient Exam Limitations: No limitations Primary Care Provider: LISSY WALDROP Nursing and Triage Documentation Reviewed and Agree: Yes Does patient meet sepsis criteria?: No System Inflammatory Response Syndrome: Not Applicable Sepsis Protocol: For patient's 13 years and over: Temp is 96.8 and below OR 101 and greater Pulse >90 BPM Resp >20/minute Acutely Altered Mental Status Are patient's symptoms suggestive of a new infection, such as: -Pneumonia -Skin, Soft Tissue -Endocarditis -UTI -Bone, Joint Infection -Implantable Device -Acute Abdominal Infection -Wound Infection -Meningitis -Blood Stream Catheter Infection -Unknown Complaint Exam UTI Female Complaint/Exam Patient Complains of: Reports Painful urination Onset/Duration: 2 days Symptoms Are: Worse Timing: Intermittent Initial Severity: Mild Current Severity: Moderate Location of Pain: Reports Right Suprapubic Tenderness: Yes Differential Diagnoses: Pyelonephritis and Ureteral Calculus Review of Systems Review Of Systems Constitutional: Reports No symptoms Eyes: Reports No symptoms Ears, Nose, Mouth, Throat: Reports No symptoms Respiratory: Reports No symptoms Cardiac: Reports No symptoms GI: Reports No symptoms : Reports Dysuria, Frequency and Flank pain Musculoskeletal: Reports No symptoms Skin: Reports No symptoms Neurological: Reports No symptoms Endocrine: Reports No symptoms Hematologic/Lymphatic: Reports No symptoms All Other Systems: Reviewed and Negative [facility] Family History (Updated 01/30/20 @ 21:44 by MONTY MARIN RN) MATERNAL GRANDFATHER Congestive heart disease Mother Stroke Lupus Mother No problems noted. Social History Smoking and tobacco status: Never smoker History of recent travel: No Female Reproductive History Menstrual Hx Hysterectomy: No Hx Tubal Ligation: Yes Physical Exam Physical Exam Appearance: Reports Ill-appearing Ill-appearing: Moderate Pain Distress: Moderate Eyes: Reports DIONNE, EOMI and Conjunctiva clear ENT: Reports Ears normal, Nose normal and Oropharynx normal Neck: Supple Respiratory: Reports Airway patent, Breath sounds clear, Breath sounds equal and Respirations nonlabored Cardiovascular: Reports RRR, Pulses normal, No rub and No murmur GI/: Reports Soft, No masses, Bowel sounds normal, No Organomegaly and Tender Musculoskeletal: Reports Normal strength, ROM intact, No edema and No calf tenderness Skin: Reports Warm, Dry and Normal color Neurological: Reports Sensation intact, Motor intact, Reflexes intact, Cranial nerves intact, Alert and Oriented Psychiatric: Reports Affect appropriate and Mood appropriate Interpretation Radiology Interpretation Exam Interpreted: CT Scan (Nonobstructing right nephrolithiasis. ) Physician Notification Case Discussed Physician Notified: Dr Waldrop - call me with results of CT scan for orders Time of Notification: 18:40 Physician Notified: Dr Darden-accepted case; to advise Dr Waldrop of results/obta in admit orders Time of Notification: 19:00 Critical Care Note Critical Care Note Total Time (mins): 30 Course Course Hematology/Chemistry: 01/31/20 04:48 01/31/20 04:48 Orders, Labs, Meds: Lab Review 01/30/20 01/30/20 01/30/20 16:45 17:10 17:10 WBC 21.19 H RBC 4.28 Hgb 12.2 Hct 36.1 L MCV 84.3 MCH 28.5 MCHC 33.8 RDW Coeff of Marcos 14.6 Plt Count 265 Neutrophils % (Manual) 82.0 H Band Neutrophils % 17.0 H Monocytes % (Manual) 1.0 Plt Morphology Comment Normal Anisocytosis Not present RBC Morph Comment Normal ESR 72 H Sodium Potassium Chloride Carbon Dioxide Anion Gap BUN Creatinine Estimated GFR (MDRD) BUN/Creatinine Ratio Glucose Lactic Acid Calcium Total Bilirubin AST ALT Alkaline Phosphatase Troponin I Total Protein Albumin Globulin Albumin/Globulin Ratio Serum , Qual Urine Color Amelia Urine Clarity Slightly Urine pH 5.5 Ur Specific [place] 1.025 Urine Protein 3+ H Urine Glucose (UA) Negative Urine Ketones Trace H Urine Blood 3+ H Urine Nitrite Negative Urine Bilirubin 1+ H Urine Urobilinogen 0.2 Ur Leukocyte Esterase Negative Urine Microscopic RBC 5-10 Urine Microscopic WBC 5-10 Ur Squamous Epith Cells 5-10 Urine Bacteria 4+ 01/30/20 01/30/20 01/30/20 17:10 17:10 17:10 WBC RBC Hgb Hct MCV MCH MCHC RDW Coeff of Marcos Plt Count Neutrophils % (Manual) Band Neutrophils % Monocytes % (Manual) Plt Morphology Comment Anisocytosis RBC Morph Comment ESR Sodium 134.0 L Potassium 2.28 L* Chloride 88.6 L Carbon Dioxide 33.6 H Anion Gap 14.08 BUN 8.2 Creatinine 0.83 Estimated GFR (MDRD) 79.00 BUN/Creatinine Ratio 9.87 Glucose 117.7 H Lactic Acid 1.72 Calcium 9.21 Total Bilirubin 0.83 AST 36.8 H ALT 21.1 Alkaline Phosphatase 72.0 Troponin I < 0.012 Total Protein 8.11 Albumin 4.23 Globulin 3.88 Albumin/Globulin Ratio 1.09 Serum , Qual Negative Urine Color Urine Clarity Urine pH Ur Specific [place] Urine Protein Urine Glucose (UA) Urine Ketones Urine Blood Urine Nitrite Urine Bilirubin Urine Urobilinogen Ur Leukocyte Esterase Urine Microscopic RBC Urine Microscopic WBC Ur Squamous Epith Cells Urine Bacteria Orders Category Date Time Status [facility] ADMISSION 01/30/20 20:24 Active GIVE HS SNACK 2100 CARE 01/30/20 20:28 Active TELEMETRY MONITORING TELE CARE 01/30/20 20:25 Active CLEAR LIQUID DIET DIETARY 01/31/20 Breakfast Completed HS SNACK DIETARY 01/30/20 Dinner Completed IV [ED IV/MEDIPORT/POWERPORT] .ONCE EMERGENCY 01/30/20 16:59 Active BLOOD CULTURE Stat LAB 01/30/20 17:20 Results CBC W/ AUTO DIFF Stat LAB 01/30/20 17:10 Completed CBC W/ AUTO DIFF Stat LAB 01/30/20 20:27 Completed CMP [COMPREHENSIVE METABOLIC PANEL] Stat LAB 01/30/20 17:10 Completed COMPREHENSIVE METABOLIC PANEL Stat LAB 01/30/20 20:27 Completed ESR Stat LAB 01/30/20 17:10 Completed HCG QUALITATIVE [SERUM ] Stat LAB 01/30/20 17:10 Completed LACTIC ACID Stat LAB 01/30/20 17:10 Completed MANUAL DIFFERENTIAL Stat LAB 01/30/20 17:10 Completed MANUAL DIFFERENTIAL Stat LAB 01/31/20 04:48 Completed TROPONIN I Stat LAB 01/30/20 17:10 Completed UA [URINALYSIS C & S IF INDICATED] Stat LAB 01/30/20 16:45 Completed URINE CULTURE Stat LAB 01/30/20 16:45 Completed 0.9 % Sodium Chloride [Saline Flush] MEDS 01/30/20 16:57 Discontinued 1 syr IVF PRN PRN Acetaminophen [Tylenol] MEDS 01/30/20 16:57 Discontinued 650 mg PO ONCE STA Acetaminophen [Tylenol] MEDS 01/30/20 20:27 Discontinued 650 mg PO Q4HR PRN Aztreonam [Azactam] 1 gm MEDS 01/30/20 21:00 Discontinued 0.9 % Sodium Chloride [Sodium Chloride] 50 ml IV Q8HR Ceftriaxone/D5w 2 gm Premix [Rocephin 2 gm/50 ml D5w] MEDS 01/30/20 17:52 Discontinued 2 gm in 50 ml IV ONCE Hydromorphone HCl [Dilaudid 1 mg/ml Syringe] MEDS 01/30/20 20:39 Discontinued 1 mg IVP Q3HR PRN Ondansetron HCl/Pf [Zofran 4 mg/2 ml] MEDS 01/30/20 20:27 Discontinued 4 mg IVP Q4HR PRN Potassium Chloride [K-Dur] MEDS 01/30/20 18:37 Discontinued 20 meq PO ONCE STA Potassium Chloride [Potassium Chloride 20 Meq/100 ml MEDS 01/30/20 18:37 Discontinued Premix] 20 meq in 100 ml IV ONCE Sodium Chloride 0.9% [Sodium Chloride] 1,000 ml MEDS 01/30/20 16:57 Discontinu ed IV BOLUS CT ABD/PEL WO RENAL STONE PROT Stat RADS 01/30/20 19:04 Completed Medications Discontinued Medications Generic Name Dose Route Start Last Admin Trade Name Freq PRN Reason Stop Dose Admin Acetaminophen 650 mg 01/30/20 16:57 01/30/20 17:27 Tylenol PO 01/30/20 16:58 650 mg ONCE STA Administration Acetaminophen 650 mg 01/30/20 20:27 01/31/20 12:13 Tylenol PO 650 mg Q4HR PRN Administration Fever >101 Hydromorphone HCl 1 mg 01/30/20 20:39 01/30/20 23:36 Dilaudid 1 Mg/Ml Syringe IVP 1 mg Q3HR PRN Administration Pain Sodium Chloride 1,000 mls @ 1,000 mls/hr 01/30/20 16:57 01/30/20 17:25 Sodium Chloride IV 01/30/20 17:56 1,000 mls/hr BOLUS STA Administration CEFTRIAXONE/D5W 2 GM PREMIX 2 gm in 50 mls @ 75 mls/hr 01/30/20 17:52 01/30/20 18:42 Rocephin 2 Gm/50 Ml D5w IV 01/30/20 18:31 75 mls/hr ONCE STA Administration Potassium Chloride 20 meq in 100 mls @ 50 mls/hr 01/30/20 18:37 01/30/20 21:51 Potassium Chloride 20 Meq/100 Ml Premix IV 01/30/20 20:36 Not Given ONCE STA Aztreonam 1 gm/ Sodium 50 mls @ 75 mls/hr 01/30/20 21:00 01/31/20 13:23 Chloride IV 02/02/20 20:59 75 mls/hr Q8HR FIDEL Administration Potassium Chloride/Sodium Chloride 1,000 mls @ 100 mls/hr 01/30/20 21:30 01/31/20 17:20 Sodium Chloride 0.9%-Kcl 20 Meq IV Not Given .Q10H FIDEL Potassium Chloride 20 meq in 100 mls @ 50 mls/hr 01/31/20 07:19 01/31/20 09:17 Potassium Chloride 20 Meq/100 Ml Premix IV 01/31/20 09:18 Not Given ONCE STA Indomethacin 25 mg 01/30/20 22:30 01/30/20 22:47 Indocin PO 25 mg BID FIDEL Administration Indomethacin 25 mg 01/31/20 08:30 01/31/20 17:17 Indocin PO 25 mg BIDWM FIDEL Administration Ondansetron HCl 4 mg 01/30/20 20:27 01/31/20 06:22 Zofran 4 Mg/2 Ml IVP 4 mg Q4HR PRN Administration Nausea / Vomiting Potassium Chloride 20 meq 01/30/20 18:37 01/30/20 18:58 K-Dur PO 01/30/20 18:38 20 meq ONCE STA Administration Sodium Chloride 1 syr 01/30/20 16:57 01/30/20 17:26 Saline Flush IVF 1 syr PRN PRN Administration To flush IV Spironolactone 100 mg 01/30/20 22:30 01/31/20 08:36 Aldactone PO 100 mg BID FIDEL Administration Venlafaxine HCl 75 mg 01/31/20 09:00 01/31/20 08:36 Effexor Xr PO 75 mg DAILY FIDEL Administration Vital Signs: Temp Pulse Resp BP Pulse Ox 01/30/20 15:52 103.3 F H 127 H 20 125/91 H 97 Discharge Plan Discharge Patient Disposition: ADMITTED INPATIENT Discharge Problem: UTI (urinary tract infection), Hypokalemia Instructions: Urinary Tract Infection in Women (DC) Additional Instructions: resume all home meds including cipro PLEASE MAKE A FOLLOW UP APPOINTMENT NEXT WEEK WITH DR. WALDROP. CALL [phone] TO MAKE AN APPOINTMENT WELL REPEAT URINE. ED Provider: LISSY CSOTT Condition: Good Interventions: Discharge Last Done: 01/30/20 21:07 ED Care Summary Last Done: 01/30/20 21:07 Discharge Date/Time: 01/30/20 21:09
[2020-01-30 17:21] LABS: HEMATOCRIT 36.1 % (37.0-47.0); HEMOGLOBIN 12.2 g/dl (12.0-16.0); MEAN CORPUSCULAR HEMOGLOBIN 28.5 pg (27.0-31.0); MEAN CORPUSCULAR HGB CONC 33.8 (31.8-35.4); MEAN CORPUSCULAR VOLUME 84.3 fl (81.0-99.0); PLATELET COUNT 265 10^3/uL (140-440); RDW COEFFICIENT OF VARIATION 14.6 % (11.6-14.8); RED BLOOD COUNT 4.28 10^6/ul (4.20-5.40); WHITE BLOOD COUNT 21.19 K/ul (4.6-10.2)
[2020-01-30 17:33] LABS: ALANINE AMINOTRANSFERASE 21.1 U/L (0-35); ALBUMIN 4.23 g/dL (3.5-5.0); ASPARTATE AMINO TRANSFERASE 36.8 U/L (14-36); BILIRUBIN,TOTAL 0.83 mg/dL (0.2-1.3); BLOOD UREA NITROGEN 8.2 mg/dL (7-17); CALCIUM 9.21 mg/dL (8.4-10.2); CARBON DIOXIDE 33.6 mmol/L (22-30.0); CHLORIDE 88.6 mmol/L (98-107); CREATININE 0.83 mg/dL (0.60-1.30); GLUCOSE 117.7 mg/dL (74-106); SERUM PREGNANCY NEGATIVE (NEGATIVE); TOTAL PROTEIN 8.11 g/dL (6.3-8.2)
[2020-01-30] MEDS ORDERED: ROCEPHIN 2 GM/50 ML D5W 2 GM/50 ML BAG IV STA (17:52)
[2020-01-30 18:00] LABS: ANISOCYTOSIS NOT PRESENT (NOT PRESENT)
[2020-01-30 18:09] LABS: POTASSIUM 2.28 mmol/L (3.5-5.1); TROPONIN I < 0.012 ng/ml (0.0000-0.120)
[2020-01-30 18:12] LABS: ERYTHROCYTE SEDIMENTATION RATE 72 mm/hr (0-20)
[2020-01-30] MEDS ORDERED: K-DUR PO STA (18:37)
[2020-01-30] MEDS ORDERED: POTASSIUM CHLORIDE 20 MEQ/100 ML PREMIX 20 MEQ/100 ML BAG IV STA (18:37)
[2020-01-30 18:44] LABS: BILIRUBIN,URINE 1+ (NEGATIVE); CLARITY,URINE Slightly (CLEAR); COLOR,URINE Amber (YELLOW); GLUCOSE, URINE (UA) Negative (NEGATIVE); KETONES,URINE Trace (NEGATIVE); LEUKOCYTE ESTERASE ,URINE Negative (NEGATIVE); NITRITE,URINE Negative (NEGATIVE); PH,URINE 5.5 (5-9); PROTEIN,URINE 3+ (NEGATIVE); URINE, BLOOD 3+ (NEGATIVE); UROBILINOGEN,URINE 0.2 (0.2)
[2020-01-30 18:49] LABS: BACTERIA,URINE 4+ (NOT PRESENT)
--- NOTE | 2020-01-30 19:41 | CT ---
EXAM: CT abdomen and pelvis without contrast HISTORY: UTI COMPARISON: 09/29/2018. TECHNIQUE: Axial CT imaging of the abdomen and pelvis was performed without IV contrast. Sagittal an d coronal re-formations were performed. FINDINGS: The lung bases are clear. The non contrast visualized portions of the liver, spleen, gallbladder, pancreas and adrenal glands a re within normal limits. The gallbladder is surgically absent. A punctate calculus is present involving the left adrenal glan d, unchanged. There is no intrahepatic ductal dilatation. No mesenteric or retroperitoneal lymphade nopathy is seen. Suggestion of a 1 mm nonobstructing calculus in the mid pole of the right kidney. The right and left kidney are otherwise unremarkable. There is no hydronephrosis or perinephric fat stranding. The aorta is normal in course and caliber. A small fat-containing umbilical hernia is present. Clips are present in the right lower quadrant. The appendix is not visualized. No pathologically di lated loops of large or small bowel are seen. There is no free air or fluid seen in the abdomen or p van. The urinary bladder is unremarkable. The uterus is present. Age appropriate osseous finding s. IMPRESSION: Nonobstructing right nephrolithiasis. Status post cholecystectomy and appendectomy.
[2020-01-30] MEDS ORDERED: DILAUDID 1 MG/ML SYRINGE IVP PRN (20:39)
[2020-01-30] MEDS ORDERED: AZACTAM ONE (21:17)
[2020-01-30 21:39] VITALS: BMI 29.7
[2020-01-30] MEDS: SODIUM CHLORIDE 0.9%-KCL 20 MEQ 1,000 ML IV SCH (21:51)
[2020-01-30] MEDS: AZACTAM 1 GM in SODIUM CHLORIDE 50 ML IV SCH (21:52)
[2020-01-30] MEDS ORDERED: INDOCIN PO SCH (22:30)
[2020-01-30] MEDS: ALDACTONE PO SCH (22:47)
[2020-01-31] MEDS: ZOFRAN 4 MG/2 ML IVP PRN ×2 (00:25→06:22)
[2020-01-31] MEDS: TYLENOL PO PRN ×2 (00:28→12:13)
[2020-01-31 05:33] LABS: HEMATOCRIT 31.7 % (37.0-47.0); HEMOGLOBIN 10.4 g/dl (12.0-16.0); MEAN CORPUSCULAR HEMOGLOBIN 28.1 pg (27.0-31.0); MEAN CORPUSCULAR HGB CONC 32.8 (31.8-35.4); MEAN CORPUSCULAR VOLUME 85.7 fl (81.0-99.0); PLATELET COUNT 222 10^3/uL (140-440); RDW COEFFICIENT OF VARIATION 14.6 % (11.6-14.8); WHITE BLOOD COUNT 12.44 K/ul (4.6-10.2)
[2020-01-31 05:40] LABS: ALBUMIN 3.46 g/dL (3.5-5.0); ALKALINE PHOSPHATASE 74.9 U/L (38-126); ASPARTATE AMINO TRANSFERASE 108.1 U/L (14-36); BILIRUBIN,TOTAL 0.66 mg/dL (0.2-1.3); BLOOD UREA NITROGEN 11.5 mg/dL (7-17); CALCIUM 8.37 mg/dL (8.4-10.2); CARBON DIOXIDE 35.4 mmol/L (22-30.0); CREATININE 0.61 mg/dL (0.60-1.30); GLUCOSE 129.1 mg/dL (74-106); SODIUM 134.5 mmol/L (134.5-145); TOTAL PROTEIN 6.73 g/dL (6.3-8.2)
[2020-01-31] MEDS ORDERED: AZACTAM ONE (05:50)
[2020-01-31] MEDS: AZACTAM 1 GM in SODIUM CHLORIDE 50 ML IV SCH ×2 (05:52→13:23)
[2020-01-31 05:59] LABS: ANISOCYTOSIS NOT PRESENT (NOT PRESENT)
[2020-01-31 06:04] LABS: POTASSIUM 2.77 mmol/L (3.5-5.1)
[2020-01-31] MEDS ORDERED: POTASSIUM CHLORIDE 20 MEQ/100 ML PREMIX 20 MEQ/100 ML BAG IV STA (07:19)
[2020-01-31] MEDS: ALDACTONE PO SCH (08:36)
[2020-01-31] MEDS: INDOCIN PO SCH ×2 (08:36→17:17)
[2020-01-31] MEDS: SODIUM CHLORIDE 0.9%-KCL 20 MEQ 1,000 ML IV SCH ×2 (08:37→17:20)
[2020-01-31] MEDS ORDERED: EFFEXOR XR PO SCH (09:00)
[2020-01-31 15:09] VITALS: BP 102/63; TEMP 99.4
--- NOTE | 2020-03-04 11:01 | SSS ---
PRINCIPAL DIAGNOSIS: 1. Pyelonephritis 2. Gitelman's Syndrome DISCUSSION: This is a 34 year old lady who presented to the emergency department with flank pain, dysuria, fever and some chills. She does have underlined history of Gitelman's syndrome with subsequent alterations and potassium and magnesium. She was seen in the emergency department by ER physician with a 103.3 temperature. The ER physician did not feel that she could be treated at home therefore she was admitted to my services for IV fluids and further treatment of the UTI. PAST MEDICAL HISTORY: MEDICATIONS: Aldactone Effexor K-Dur Indocin ALLERGIES: No known allergies PAST MEDICAL HISTORY: History of Gitelman's syndrome History of tubal ligation in the past SOCIAL HISTORY: No history of tobacco or illicit drug use. FAMILY HISTORY: Stroke Lupus REVIEW OF SYSTEMS: No headaches, visual changes, tinnitus, chest pain, shortness of breath, hemoptysis, blood in the stool, urinary symptoms or seizures. Fevers and chills as well as flank pain. Nausea. No recent tick bites. No vomiting. PHYSICAL EXAMINATION: VITAL SIGNS: Temperature 103.3, pulse 127, respirations 20 and blood pressure 125/91. HEENT: Pupils are round. NECK: Supple. CHEST: Clear. CARDIOVASCULAR: Regular rate and rhythm. ABDOMEN: Soft, nontender. EXTREMITIES: Distal extremities without cyanosis or edema. CLINICAL COURSE: The patient admitted to by services and started on IV antibiotics. It should be noted that a CT scan of the abdomen did not reveal any evidence of obstruction from stone. With IV antibiotics she did defervesce. Now her urine culture revealed mixed growth. I think that this could have been effected by some antibiotics that she was taking. She was discharged on antibiotics and she will followup in the office next week for repeat urine and culture. TOD
== END 2020-01-31 17:58 | disposition home or self-care (01) | DRG 696 ==
LOC: ED 15:50 → MEDSURG A 20:54
PROVIDERS: ADMIT Family Medicine; ATTEND Family Medicine